=== PATIENT | female | born 1945 | race Caucasian/White ===

== ENCOUNTER 2019-09-10 08:17 | Inpatient (IN) ==
[~2019-09-10 08:17] MED LIST: BUPIVACAINE HCL/EPINEPHRINE 50 ML VIAL ONE; DEXAMETHASONE SODIUM PHOSPHATE 10 MG/ML VIAL ONE; ISOPROPYL ALCOHOL 480 APPL BTL MC ONE; LIDOCAINE HCL 50 ML VIAL ONE; MIDAZOLAM HCL/PF 1 MG/ML VIAL ONE; MORPHINE SULFATE 15 MG TABLET.SA PO PRN; ONDANSETRON HCL/PF 2 MG/ML VIAL ONE; PROPOFOL VIAL IV ONE; TRANEXAMIC ACID 1,000 MG in NORMAL SALINE 100 ML IV PRN; ceFAZolin SODIUM 1 GM VIAL IV PRN; ceFAZolin SODIUM 1 GM VIAL ONE
--- NOTE | 2019-09-10 09:19 | ANES ---
Anesthesia Pre Procedure Eval Vitals/Labs: Last Vital Signs Temp 36.5 C 09/10/19 08:41 Pulse 81 09/10/19 08:41 Resp 18 09/10/19 08:41 BP 142/82 09/10/19 08:41 Pulse Ox 94 09/10/19 08:41 HOME MEDICATIONS Aspirin [Aspirin Enteric Coated] 81 mg PO DAILY 12/19/14 [Last Taken 08/31/19 07:00] Mv-Min/Iron/Folic/Calcium/Vitk [One-A-Day Women's Tablet] 1 ea PO DAILY 12/19/14 [Last Taken 01/19/15] Naproxen Sodium [Aleve] 220 mg PO BID PRN 12/19/14 [Last Taken Unknown] Polyethylene Glycol 3350 [Miralax] 17 gm PO DAILY 12/19/14 [Last Taken Unknown] cetirizine 10 mg tablet 10 mg PO DAILY #90 tab 12/04/18 [Last Taken Unknown] ropinirole 0.25 mg tablet 0.5 mg PO HS #180 tab 12/04/18 [Last Taken Unknown] duloxetine 60 mg capsule,delayed release 60 mg PO DAILY #90 cap 08/28/19 [Last Taken Unknown] hydrochlorothiazide 25 mg tablet 25 mg PO DAILY #90 tab 08/28/19 [Last Taken 09/10/19 07:00] Allergies/Adverse Reactions: Allergies Allergy/AdvReac Type Severity Reaction Status Date / Time iodine Allergy Mild NAUSEA, Verified 09/10/19 08:50 RASH WITH IODIZED SALT morphine AdvReac Mild N/V, SWEATS Verified 09/10/19 08:50 - Planned Procedure Planned Procedure: Right Reverse Total Shoulder Arthroplasty Medication List Reviewed:: Yes Allergies Verified: Yes Medical History (Last Reviewed 09/10/19 @ 09:16 by Mazin Garcia CRNA) Rotator cuff arthropathy (Chronic) Restless leg syndrome Fibromyalgia Hiatal hernia Hypertension CLEMENCIA (obstructive sleep apnea) Obesity Carpal tunnel syndrome DDD (degenerative disc disease) Diverticulosis Dysphagia Hematuria History of cholecystitis Hyperpotassemia Colonic polyp Onset Date: 03/29/00 Migraine TIA (transient ischemic attack) Surgical History (Last Reviewed 09/10/19 @ 09:16 by Mazin Garcia CRNA) History of carpal tunnel release Onset Date: Unknown [facility]. Right. History of cataract surgery Onset Date: 2014 Left. History of colonoscopy Onset Date: 03/29/00 Dr. Duglas Walker, [facility]. Polyp. History of dilation and curettage Onset Date: 1999 History of dilation and curettage Onset Date: 2002 History of esophageal dilatation Onset Date: 11/2016 History of fusion of cervical spine Onset Date: 11/2015 Dr. Kaleb Liu, [facility]. C5, C6, and C7. History of hysteroscopy Onset Date: 1999 History of knee replacement procedure of left knee Onset Date: 10/2012 History of knee replacement procedure of right knee Onset Date: 08/2012 History of laparoscopic cholecystectomy Onset Date: 03/21/99 Dr. Duglas Walker, [facility]. History of repair of left rotator cuff Onset Date: 06/22/04 Dr. Miquel Spicer, [facility]. Family History (Last Reviewed 09/10/19 @ 09:16 by Mazin Garcia CRNA) Father Cancer, Onset Age: 62 Bone, lung Grandfather Multiple myeloma Heart disease Grandmother Diabetes Mother Emphysema lung, Onset Age: 61 Uncle Cancer Colon cancer - Family Anesthesia History Family History:: no untoward family reactions to anesthesia, no familial bleeding tendencies, no family history of clotting disorders, no family history of premature - Airway/Neck/Teeth Within Normal Limits:: Yes Teeth Condition: intact Neck Exam: full range of motion Mallampatti Score: 2 Thyromental (T-M) distance: > 6 cm Mandibulo Hyoid distance: > 3 cm - Respiratory Respiratory History: sleep apnea, CPAP/BiPAP home use - not currently working Respiratory Physical: lungs clear Smoking Status: Never smoker Sleep Apnea currently treated: Yes - but not working Sleep Apnea by current assessment: Yes - Cardiovascular Cardiac History: TIA, hypertension Tolerate Activity: Fair, Poor Heart Sounds: S1 & S2, Regular - Anesthesia Assessment and Plan ASA Class: PS, III Anesthesia Type Plan: General LMA, Block - Interscalene zion for post op pain relief
[2019-09-10] MEDS: RINGER'S SOLUTION,LACTATED 1,000 ML IV PRN ×2 (09:24→11:04)
[2019-09-10] MEDS ORDERED: diphenhydrAMINE HCL 50 MG/ML VIAL IV PRN (11:32)
[2019-09-10] MEDS ORDERED: MAG HYDROX/ALUMINUM HYD/SIMETH 30 ML UDC PO PRN (11:32)
[2019-09-10] MEDS ORDERED: HYDROmorphone HCL 1 MG/ML DISP.SYRIN IV PRN (11:32)
[2019-09-10] MEDS ORDERED: DEXTROSE 5%-LACTATED RINGERS 1,000 ML IV PRN (11:32)
[2019-09-10] MEDS ORDERED: MAGNESIUM HYDROXIDE 30 ML UDC PO PRN (11:32)
[2019-09-10] MEDS ORDERED: ZOLPIDEM TARTRATE 5 MG TABLET PO PRN (11:32)
[2019-09-10] MEDS ORDERED: ONDANSETRON HCL/PF 2 MG/ML VIAL IV PRN (11:32)
[2019-09-10] MEDS ORDERED: ACETAMINOPHEN 500 MG TABLET PO PRN (11:32)
--- NOTE | 2019-09-10 11:39 | OR ---
Operative Report - Dictated Report Narrative: DATE OF PROCEDURE: 09/10/2019 PHYSICIAN: Jhonny Albarran MD CENTRAL SUPPLY AIDE: Cosmo Bertrand PA-C (provided and essential set of skilled, educated hands that assisted with transfer, positioning, prepping, draping, manipulation, retraction, placement of implants, irrigation, closure wounds, and application of dressings all which cannot be performed by the available surgical crew) PREOPERATIVE DIAGNOSIS: Right rotator cuff deficient shoulder arthrosis. POSTOPERATIVE DIAGNOSIS: Right rotator cuff deficient shoulder arthrosis. OPERATIONS AND PROCEDURES: Right reverse total shoulder arthroplasty. ANESTHESIA: General plus regional. COMPLICATIONS: None. DRAINS: None. SPECIMENS: Bone. ESTIMATED BLOOD LOSS: 100 mL. RETAINED IMPLANTS: 1. DePuy Delta Xtend cementless metaglene. 2. Delta Xtend glenosphere, 38 mm standard. 3. Global unite size 8 modular Porocoat-coated cementless stem. 4. Size 1 right modular eccentric epiphysis MARSH-coated cementless. 5. Delta Xtend standard polyethylene size 38 plus 6 mm. 6. Metaglene locking screws, 36 mm and 30 mm in length. 7. Nonlocking metaglene screws, 18 mm x 2 . INDICATIONS FOR PROCEDURE: Mrs. Benito is a 74-year-old female with significant past history of rotator cuff tears and deficiency. She had treated these conservatively and had an irreparable rotator cuff with some progression of arthrosis of the shoulder and difficulty with activities of daily living in pain. She was seen in clinic and had failed conservative measures. She wished to proceed with surgical treatment. The risks, benefits, and alternatives were discussed in clinic, including the risk of , blood clots, bleeding, infection, nerve/tendon/blood vessel injury, malposition of components, failure of components, wear or limited range of motion, stiffness, and need for additional procedures, and she wished to proceed. Consent was obtained here in the clinic. DESCRIPTION OF PROCEDURE: After marking the correct extremity in the preoperative holding area, the patient was taken to the operating room. A timeout was performed. IV antibiotics consisting of Ancef were administered prior to procedure. The regional followed by general anesthetic was induced by the nurse hand brush filler at my request. She was then transitioned to beach chair position with all bony prominences well padded. The head in neutral, legs with SCDs and supported,and the nonoperative arm supported. The surgical arm was prescrubbed with alcohol then prepped and draped in the standard sterile fashion and the skin was covered with ioban. A deltopectoral incision was made and blunt dissection was carried down through the skin. The cephalic vein was identified, protected, and retracted. We then went through the deltopectoral interval, exposing the proximal humerus. It was noted that there was no rotator cuff, supraspinatus and infraspinatus tendon, or teres minor tendon. The subscapularis was intact as well as the biceps. A tag suture was placed in subscapularis tendon as well as the anterior capsule, and this was elevated off the anterior humerus passing along the bicipital groove and into the rotator cuff interval, exposing the proximal humerus. This was then freed off the proximal humerus. A biceps tenotomy was performed and the shoulder was dislocated. The humeral head was noted to show signs of arthrosis. Next, an entry drill was placed down the humerus centered on the longitudinal axis entering off just onto the articular surface on the humeral head. Next were serial reamers up to the size 8 were utilized, which gave good overall cortical contact. Next, a proximal humeral head cut was performed. We made the cut at approximately 10 degrees of retroversion. This appeared to resect an appropriate amount of humeral head. This was then pinned into place and an oscillating saw was utilized to cut this humeral head, protecting the surrounding soft tissues. We then placed a cap over the proximal humerus and turned our attention to the glenoid. The soft tissues were then elevated off the humeral neck as well as circumferentially around the glenoid. The glenoid was exposed. The remaining biceps tendon and labrum were resected. Using tractors, the glenoid was exposed and a guidewire was placed just posterior and inferior to the center of the glenoid. This was made so that it directed slightly superiorly but otherwise perpendicular to the glenoid on the axillary plane. Protecting the surrounding soft tissues, a reamer was utilized in order to remove the remaining cartilage. A merchandising coordinator was utilized in order to resect the superior cartilage, and this resulted in a good overall appearance of the glenoid. The center drill lug hole was drilled and had good circumferential bone. The metaglene was then impacted into place and oriented for placement of screws along the mid plane in the superior and inferior quadrants of the glenoid as well as anterior to posterior screws. These were drilled and had appropriate overall length of screws on the superior and inferior metaglene screws. Good purchase was obtained with a 36 mm screw superiorly and 30 mm screw inferiorly. The anterior and posterior screws were drilled and 18 mm anterior and 18mm posterior nonlocking screws were plac ed. We then locked the superior and inferior screws into place. This gave good overall compression down to the glenoid with flat overall appearance and an appropriate alignment. We returned our attention to the proximal humerus. The proximal humeral reaming guide was placed for an eccentric reamer. This was utilized in order to prepare the proximal humerus. The trial stem was assembled on the back table and impacted into place. After placing the trial stem, we then returned to the metaglene. The glenosphere was then secured to the metaglene, impacted, and tightened ensuring that this was seated completely. We then returned to the humeral component and placed the trials of polyethylene inserts and found that the 6mm gave good overall longitudinal traction with no gapping. The shoulder was able to reach 140 degrees of forward flexion and 130 degrees of abduction, external rotation was to 90 degrees and with fulcrum and armpit were unable to hinge the joint out of place, and there was no essentially no gapping of the polyethylene off the humeral head nor any signs of impingement on the glenoid neck. We felt that these were the appropriately placed and sized implants. We then dislocated the shoulder, removed the trial implants, thoroughly irrigated the humerus, impacted the final implants into place in the prior determined retroversion. The trial polyethylene was utilized again and was noted that the actual stem and the trial stem were equal in tension, and thus the final polyethylene was impacted into place. The shoulder was reduced, again noted to be stable, was then thoroughly irrigated. The deltopectoral interval was closed with #0 Vicryl. The deep tissues were then closed with #0 Vicryl, subcutaneous with 3-0 Vicryl, and the skin with tj. Xeroform, 4 x 4, ABD, soft roll, and full arm Lio was applied. The patient was placed in a shoulder sling, awoken, and transferred to postanesthesia care in stable condition. All sponge, needle, and instrument counts were correct prior to closing the wounds. We will obtain postoperative films and be admitted to the floor for postoperative pain control, IV antibiotics, and starting of physical therapy. I anticipate a one to two night hospital stay.
--- NOTE | 2019-09-10 11:56 | ANES ---
Post Anesthesia Discharge - Transfer of Care Transfer of Care handoff given to nurse: Yes - Discharge from PACU Discharge from PACU when meets criteria: Yes - Comfortable in PACU.
--- NOTE | 2019-09-10 11:58 | ANES ---
Anesthesia Procedure Note Procedure Note: ANESTHESIA PROCEDURE NOTE Date of Procedure: [08/10/2019 Time of procedure: 9:25 AM Performed by: ANABELLA Muñoz CRNA, MSN Yard[employer] Caller: Meenakshi Rivera RN. Preprocedure diagnosis: Post total reverse shoulder arthroplasty pain. Post procedure diagnosis: Same. Procedure: Right interscalene nerve block. Indications: Post post right shoulder reverse arthroplasty pain relief pain relief. Findings: See below. Details of the procedure: The patient was brought to OR #2 and placed in semi-Fowlers position. The patient was prepped with chlorhexidine and using ultrasound guidance the right interscalene segment of the brachial plexus was identified and lidocaine 1% was infiltrated to the skin of the intended injection site. Under ultrasound guidance the interscalene nerve bundles were approached with visualization of a 2inch stimulator needle visualized unde ultrasound until a shoulder/arm response was identified on nerve stimulator. Once the stimulator response was effective at less than 0.5 mV and greater than 0.3 mV the bracheal plexus nerves at this level were surrounded with 25 mL bupivacaine 0.5% with 1-200,000 epinephrine. Please see radiology/ultrasound report for details and retained images of the procedure. EBL: 0 Fluids: N/A. Specimen: N/A. Post procedure condition: The patient tolerated the procedure well. No complications were noted. Thank you for this consultation. Mazin Garcia CRNA, ARNP, MSN
[2019-09-10] MEDS: KETOROLAC TROMETHAMINE 15 MG/ML VIAL IV SCH ×2 (12:39→19:43)
[2019-09-10] MEDS: oxyCODONE HCL/ACETAMINOPHEN 1 TAB TABLET PO PRN ×3 (13:20→21:47)
--- NOTE | 2019-09-10 14:01 | ANES ---
Post Anesthesia Assessment - Vital Signs Vitals: Last Vital Signs Temp 36.4 C 09/10/19 12:28 Pulse 90 09/10/19 13:43 Resp 16 09/10/19 13:43 BP 136/69 09/10/19 13:43 Pulse Ox 96 09/10/19 13:43 Airway Patency: Normal - Mental Status Level Of Consciousness: Awake, Alert, Appropriate - Pain Level Pain Score: 0 - N/V Assessment Nausea/Vomiting Presence: None Dehydration:: No
[2019-09-10] MEDS: ceFAZolin SODIUM 1 GM in DEXTROSE 5 % IN WATER 50 ML IV SCH ×4 (14:43→21:41)
[2019-09-10] MEDS ORDERED: rOPINIRole HCL 0.5 MG TABLET PO SCH (21:00)
[2019-09-10] MEDS ORDERED: SENNOSIDES/DOCUSATE SODIUM 1 TAB TABLET PO SCH (21:00)
[2019-09-10] MEDS: ASPIRIN 325 MG TABLET.DR PO SCH (21:42)
[2019-09-11] MEDS: KETOROLAC TROMETHAMINE 15 MG/ML VIAL IV SCH ×2 (00:19→07:08)
[2019-09-11] MEDS: oxyCODONE HCL/ACETAMINOPHEN 1 TAB TABLET PO PRN ×3 (02:34→11:33)
[2019-09-11] MEDS: ceFAZolin SODIUM 1 GM in DEXTROSE 5 % IN WATER 50 ML IV SCH ×2 (02:36)
[2019-09-11] MEDS: ASPIRIN 325 MG TABLET.DR PO SCH (08:42)
[2019-09-11] MEDS ORDERED: DULoxetine HCL 30 MG CAPSULE.SA PO SCH (09:00)
[2019-09-11] MEDS ORDERED: POLYETHYLENE GLYCOL 3350 17 GM PACKET PO SCH (09:00)
[2019-09-11] MEDS ORDERED: LORATADINE 10 MG TABLET PO SCH (09:00)
[2019-09-11] MEDS ORDERED: HYDROCHLOROTHIAZIDE 25 MG TABLET PO SCH (09:00)
[2019-09-11] MEDS ORDERED: MULTIVITAMIN/IRON/FOLIC ACID 1 TAB TABLET PO SCH (09:00)
--- NOTE | 2019-09-11 12:56 | DS ---
(1) Status post reverse total arthroplasty of right shoulder Problem: Acute (2) Hypertension Problem: Chronic (3) Obesity Problem: Chronic (4) Rotator cuff arthropathy Problem: Chronic Date of Discharge:: 09/11/19 Hospital Course: Mrs. Cooney was admitted to the floor after undergoing right reverse total shoulder arthroplasty. Tolerated this well. Was admitted to the floor postoperatively for 24 hours of IV antibiotics, pain control, medical comanagement, and occupational and physical therapy. OT and PT were consulted to assist with activities of daily living and ambulation. Was made weightbearing as tolerated in immobilizer with range of motion as tolerated. Pain was initially controlled with IV regimen. This was transitioned to oral once tolerating a by mouth intake. Was resumed on home diet and medications. 325 mg aspirin twice daily SCD and MANAS hose were utilized for DVT prophylaxis. Vital signs remained stable to the hospital course. Physical examination throughout the hospital course showed an extremity that had sensation that was intact to light touch, palpable pulses, a benign wound, motor intact. Once an oral pain regimen was tolerated and physical therapy goals were met, it was felt that they were stable for discharge to home. Instructions: Continue with weightbearing as tolerated and range of motion as tolerated. Keep dressing and wound clean and dry. If you note any drainage or for comfort you can cover with dry gauze and tape. Change every 2-3 days as needed. Continue with physical therapy. Resume home diet. Report any fever over 101.5 Fahrenheit, uncontrolled pain, increased drainage, foul odor of drainage, new or increased calf pain or shortness of breath, or any other significant complaints. A 325mg dialy aspirin will be started twice a day for 1 month postoperatively and then resume normal 81 mg aspirin daily. No driving until instructed otherwise. Follow up in approximately 10-14 days. Procedures Performed: see notes below List Procedures: Status post right reverse total shoulder arthroplasty Discharge Location: Home Disposition: Home self-care Condition: Good Discharge Activity: Activity as tolerated - With a sling on Discharge Diet: Low salt Referrals: Luis F Grace DO [Primary Care Provider] - Jhonny Albarran MD [Staff Physician] - 09/25/19 1:15 pm Additional Patient Instructions (free text): Physical Therapy at [facility] scheduled for 09/13/19 at 1:00pm. Follow up with Dr. Albarran in the office on 09/25/19 at 1:15pm. Prescriptions (Any new or edited meds): oxyCODONE HCL/ACETAMINOPHEN [Percocet 5 MG/325 MG] 2 tab PO Q4H PRN #56 tab PRN Reason: Moderate Pain (Pain Scale 4-6) Transmission Status: Received by [facility] #[id number] Sennosides/Docusate Sodium [Senokot-S] 2 tab PO HS #30 tab Transmission Status: Pending to [facility] #[id number] Complete Home Medications List: Complete Home Medication List: Aspirin [Aspirin Enteric Coated] 81 mg PO DAILY 12/19/14 Mv-Min/Iron/Folic/Calcium/Vitk [One-A-Day Women's Tablet] 1 ea PO DAILY 12/19/14 Naproxen Sodium [Aleve] 220 mg PO BID PRN 12/19/14 Polyethylene Glycol 3350 [Miralax] 17 gm PO DAILY 12/19/14 cetirizine 10 mg tablet 10 mg PO DAILY #90 tab 12/04/18 ropinirole 0.25 mg tablet 0.5 mg PO HS #180 tab 12/04/18 duloxetine 60 mg capsule,delayed release 60 mg PO DAILY #90 cap 08/28/19 hydrochlorothiazide 25 mg tablet 25 mg PO DAILY #90 tab 08/28/19 Aspirin [Aspirin Enteric Coated] 325 mg PO BID tablet. 09/11/19 Sennosides/Docusate Sodium [Senokot-S] 2 tab PO HS #30 tab 09/11/19 oxyCODONE HCL/ACETAMINOPHEN [Percocet 5 MG/325 MG] 2 tab PO Q4H PRN #56 tab 09/11/19 Amb Orders for Discharge: PT Evaluation and Treatment* Facility: [facility], Location: Rehabilitation Services
[2019-09-11 13:38] VITALS: BP 132/57
== END 2019-09-11 13:40 | disposition home or self-care (01) | DRG 483 ==
LOC: MS 08:17
PROVIDERS: ADMIT Orthopaedic Surgery; ATTEND Orthopaedic Surgery
DX: I10 Essential (primary) hypertension; Z68.43 Body mass index [BMI] 50.0-59.9, adult; G47.33 Obstructive sleep apnea (adult) (pediatric); E66.01 Morbid (severe) obesity due to excess calories; M19.011 Primary osteoarthritis, right shoulder
CPT/HCPCS: 73030; 94660; 97110; 97116; 97161; 97166; J2405